=== PATIENT | male | born 1960 | race African-American/Black ===

== ENCOUNTER 2018-08-14 12:27 | Emergency (ER) | payer OTHER ==
[~2018-08-14] VITALS: Ht 185.4 cm; Wt 86.2 kg
[2018-08-14 13:21] LABS: ABSOLUTE NEUTROPHILS 1.1 thou/uL (1.4-8.2); BASOPHILS 1.5 % (0.0-2.0); HEMATOCRIT 36.5 % (42.0-52.0); HEMOGLOBIN 12.1 gm/dL (14.0-18.0); LYMPHOCYTES 47.4 % (24.0-44.0); MCH 28.1 pg (26.0-34.0); MCHC 33.1 g/dL (28.0-37.0); MCV 84.8 fL (80.0-100.0); MONOCYTES 7.4 % (1.0-8.0); PLATELET COUNT 185 thou/uL (150-400); POLYS 34.7 % (36.0-66.0); RBC 4.31 mil/uL (4.50-6.00); RDW 15.1 % (10.5-14.5); WBC 3.3 thou/uL (4.0-11.0)
[2018-08-14 13:31] LABS: ANION GAP 9 mmol/L (7-16); BUN 15 mg/dL (7-18); CALCIUM 8.9 mg/dL (8.5-10.1); CHLORIDE 109 mmol/L (98-107); CO2 23 mmol/L (21-32); GLUCOSE 84 mg/dL (74-106); POTASSIUM 4.7 mmol/L (3.5-5.1); SODIUM 141 mmol/L (136-145)
[2018-08-14 13:40] LABS: TROPONIN-I <0.06 ng/mL (<0.06)
[2018-08-14 15:02] VITALS: BP 140/88
--- NOTE | 2018-08-15 09:32 | EKG ---
[place] [address] [address] [facility] [place] [address] ELECTROCARDIOGRAM REPORT Name: ENZO WOODY Room #: DEP RUBEN Basilio#: [id number] ������������������ Admission: 08/14/18 ������������������ Attend Phys: Discharge: 08/14/18 ������������������ Date of : 58 Report #: [id number] ����������������������������������������������������������������� [id number] THIS REPORT FOR: //name// [facility] ED Test Date: 2018-08-14 Test Time: 13:07:17 Pat Name: ENZO WOODY Department: Room: Gender: M [employer]olta[employer] Installer: [id number] : 1960 Requested By: Dexter Sanchez Order Number: [id number] MD: Gene Tesfaye Measurements Intervals [place] Rate: 61 P: 30 AL: 182 QRS: 25 QRSD: 105 T: 39 QT: 430 QTc: 433 Interpretive Statements Sinus rhythm Borderline low voltage, extremity leads No previous ECG available for comparison Electronically Signed On 08-15-2018 9:31:48 CDT by Gene Tesfaye [email or web address] ��������������������������������������������� <ELECTRONICALLY SIGNED> ���������������������������������������� By: Gene Tesfaye MD ��������������������������������������������� 08/15/18 0931 1307 1307 Gene Tesfaye MD /EPI
== END 2018-08-14 15:18 | disposition home or self-care (01) ==
LOC: ER 12:27
PROVIDERS: Emergency Medicine
DX: R06.00 Dyspnea, unspecified (principal); Z86.73 Personal history of transient ischemic attack (TIA), and cerebral infarction without residual deficits